=== PATIENT | male | born 1995 | race Two or more races ===

== ENCOUNTER 2020-03-14 13:36 | Emergency (ER) | payer OTHER ==
[2020-03-14 13:50] VITALS: BP 112/76; PULSE 74; TEMP 98.2; BMI 30.8
--- NOTE | 2020-03-14 14:12 | PDOC ---
History of Present Illness - General Chief Complaint: Pain Stated Complaint: RIGHT UPPER CHEST PAIN 3 DAYS Time Seen by Provider: 03/14/20 13:52 - History of Present Illness Initial Comments: 03/14/20 14:03 24M with PMH of GERD presents with acute on chronic right sided chest pain. Patient states he has had this pain for 6 months. Initially it was intermitted, but it has been more severe and constant for the past three days. Describes it as "pressure" in the upper right chest, no radiation, not exertional, not worse with deep breaths, not positional, no SOB, no n/v. States it is worse after he eats. States he has also been having more acid reflux recently. Has seen a GI who prescribed famotidine then omeprazole, most recently took one month ago, but states it did not help. He came to the ER today rather than the GI because he doesn't think they would do anything and he wants more tests. PMH:as above PSH: left ankle surgery Meds: none Allergies: none ROS GENERAL/CONSTITUTIONAL: No fever or chills. No weakness. HEAD, EYES, EARS, NOSE AND THROAT: No change in vision. No ear pain or discharge. No sore throat. CARDIOVASCULAR: chest pain. no shortness of breath RESPIRATORY: No cough, wheezing, or hemoptysis. GASTROINTESTINAL: No nausea, vomiting, diarrhea or constipation. GENITOURINARY: No dysuria, frequency, or change in urination. MUSCULOSKELETAL: No joint or muscle swelling or pain. No neck or back pain. SKIN: No rash NEUROLOGIC: No headache, vertigo, loss of consciousness, or change in strength/sensation. ENDOCRINE: No increased thirst. No abnormal weight change HEMATOLOGIC/LYMPHATIC: No anemia, easy bleeding, or history of blood clots. ALLERGIC/IMMUNOLOGIC: No hives or skin allergy. PE GENERAL: Awake, alert, and fully oriented, in no acute distress HEAD: No signs of trauma, normocephalic, atraumatic EYES: PERRLA, EOMI, sclera anicteric, conjunctiva clear ENT: Auricles normal inspection, hearing grossly normal, nares patent, oropharynx clear without exudates. Moist mucosa NECK: Normal ROM, supple, no lymphadenopathy, JVD, or masses LUNGS: No distress, speaks full sentences, clear to auscultation bilaterally HEART: Regular rate and rhythm, normal S1 and S2, no murmurs, rubs or gallops, peripheral pulses normal and equal bilaterally. Small bulge and tenderness on right costal cartilage ABDOMEN: Soft, nontender, normoactive bowel sounds. No guarding, no rebound. No masses EXTREMITIES : left foot immobilized in boot. Otherwise normal inspection, Normal range of motion, no edema. No clubbing or cyanosis. NEUROLOGICAL: Cranial nerves II through XII grossly intact. Normal speech, normal gait, no focal sensorimotor deficits SKIN: Warm, Dry, normal turgor, no rashes or lesions noted Vital Signs Temp Pulse Resp BP Pulse Ox 98.2 F 74 16 112/76 100 03/14/20 13:39 03/14/20 13:39 03/14/20 13:39 03/14/20 13:39 03/14/20 13:39 MDM: 24M with PMH of GERD presents with acute on chronic right sided chest pain. DDx includes GERD, costochondritis. No typical features, and very low suspicion for cardiac etiology. Given his chest pain and small bulge on his costal cartilage, will get a CXR. -EKG -CXR -ibuprofen 600mg PO 03/14/20 14:17 Sinus bradycardia, rate 59, normal axis and intervals, no ischemic changes CXR: no acute pathology 03/14/20 17:49 DC home with PCP and GI f/u Past History - Medical History Allergies/Adverse Reactions: Allergies Allergy/AdvReac Type Severity Reaction Status Date / Time No Known Allergies Allergy Verified 03/14/20 13:39 Home Medications: Ambulatory Orders NK [No Known Home Medication] 03/14/20 COPD: No GI Disorders: Yes (ACID REFLUX) - Surgical History Orthopedic Surgery: Yes (ORIF L ankle 12/15/19) - Immunization History Immunization Up to Date: Yes - Psycho-Social/Smoking History Smoking History: Former smoker Have you smoked in the past 12 months: No If you are a former smoker, when did you quit?: JULY 2019 Information on smoking cessation initiated: No - Substance Abuse Hx (Audit-C & DAST Scrn) How often the patient has a drink containing alcohol: Never Score: In Men: 4 or > Positive; In Women: 3 or > Positive: 0 Screen Result (Pos requires Nsg. Audit-10AR): Negative In the last yr the pt used illegal drug/Rx for NonMed reason: Yes Score: Yes response is considered Positive: 1 Screen Result (Positive result requires Nsg. DAST-10): Positive *Physical Exam - Vital Signs Last Vital Signs Temp Pulse Resp BP Pulse Ox 98.2 F 74 16 112/76 100 03/14/20 13:39 03/14/20 13:39 03/14/20 13:39 03/14/20 13:39 03/14/20 13:39 Discharge - Discharge Information Problems reviewed: Yes Clinical Impression/Diagnosis: Right-sided chest pain, Globus sensation Condition: Stable Disposition: HOME - Admission No - Follow up/Referral - Patient Discharge Instructions Patient Printed Discharge Instructions: DI for Atypical Chest Pain Additional Instructions: You were seen in the ER for chest pain. We did a physical exam, EKG, and chest x-ray, which did not show any emergent problems. 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 PLease return to the ER for continued or worsening symptoms, difficulty swallowing, vomiting, fever, difficulty breathing, or any other reason. - Post Discharge Activity
--- NOTE | 2020-03-14 14:16 | PDOC ---
Attending Attestation - Resident Resident Name: Jd England - ED Attending Attestation I have performed the following: I have examined & evaluated the patient, The case was reviewed & discussed with the resident, I agree w/resident's findings & plan - HPI HPI: 03/14/20 14:14 24M with PMH of GERD presents with acute on chronic right sided chest pain. Patient states he has had this pain for 6 months. Initially it was intermitted, but it has been more severe and constant for the past three days. Describes it as "pressure" in the upper right chest, no radiation, not exertional, not worse with deep breaths, not positional, no SOB, no n/v. States it is worse after he eats. Describes a globus sensation where he feels there's something in his throat. States he has also been having more acid reflux recently. Has seen a GI who prescribed famotidine then omeprazole, most recently took one month ago, but states it did not help. He came to the ER today rather than the GI because he doesn't think they would do anything and he wants more tests. 03/14/20 15:53 - Physicial Exam PE: 03/14/20 14:14 Agree with the resident's HPI and PE as documented in the electronic medical record. NAD, well appearing, EOMI, PERRL, nl conjunctiva, anicteric; neck supple. lungs clear, RRR, +reproducible chest wall pain on the right. abdomen soft nontender. no rebound, guarding. Back nontender. CAMPA x4, no focal neuro deficits. No peripheral edema. normal color for ethnicity, WWP. 03/14/20 14:15 - Medical Decision Making 03/14/20 14:14 Vital Signs Temp Pulse Resp BP Pulse Ox 98.2 F 74 16 112/76 100 03/14/20 13:39 03/14/20 13:39 03/14/20 13:39 03/14/20 13:39 03/14/20 13:39 vitals reviewed wnl EKG normal sinus rhythm 59 bpm, no interval abnormalities, narrow QRS, ST and T wave segments and morphology normal. CXR no acute chest pathology atypical sx. clinically doubt cardiac etiology reproducible pain, will give analgesia his airway is patent, tolerating PO intake. doubt obstruction he has a globus sensation in his throat, maintaining his secretions. abdomen is soft and nontender will refer GI for EGD and outpatient evaluation DC stable condition, f/u PCP Pt to be discharged in stable condition. Patient made aware of clinical impression, treatment recommendations and disposition plan, return precautions discussed (including but not limited to new or persistent/worsening symptoms, pain, fevers, or signs of infection, chest pain, respiratory distress, inability to tolerate oral intake, dehydration, syncope, or neurologic changes). Follow up with PMD and/or specialist as recommended, follow up information provided, take medications as instructed for duration of time. continue with supportive care, avoid triggers and precipitants. All questions answered to patient's satisfaction and expressed understanding and comfort with this. At the time of discharge, the patient is alert, clinically improved, tolerating po and verbalizes understanding of instructions, satisfied with the care received and felt comfortable with the plan. Patient does not suffer from an acute life- threatening medical condition at this time and is safe for outpatient follow- up. 03/14/20 14:14 03/14/20 14:15 03/14/20 15:48 03/14/20 15:49 03/14/20 15:54 Heart Score/ECG Review #1 ECG reviewed & interpreted by me at: 14:15 General ECG Interpretation: Sinus Rhythm, Normal Rate, Normal Intervals 03/14/20 14:14 EKG normal sinus rhythm 59 bpm, no interval abnormalities, narrow QRS, ST and T wave segments and morphology normal. Discharge - Discharge Information Problems reviewed: Yes Clinical Impression/Diagnosis: Right-sided chest pain, Globus sensation Condition: Stable Disposition: HOME - Admission No - Follow up/Referral - Patient Discharge Instructions Patient Printed Discharge Instructions: DI for Atypical Chest Pain Additional Instructions: You were seen in the ER for chest pain. We did a physical exam, EKG, and chest x-ray, which did not show any emergent problems. 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 PLease return to the ER for continued or worsening symptoms, difficulty swallowing, vomiting, fever, difficulty breathing, or any other reason. - Post Discharge Activity
[2020-03-14] MEDS ORDERED: IBUPROFEN 600 MG TABLET (FP) PO ONE ×2 (14:17→14:20)
--- NOTE | 2020-03-15 15:29 | EKG ---
Test Reason : Blood Pressure : / mmHG Vent. Rate : 059 BPM Atrial Rate : 059 BPM P-R Int : 176 ms QRS Dur : 094 ms QT Int : 400 ms P-R-T Axes : 040 052 042 degrees QTc Int : 396 ms POOR DATA QUALITY, INTERPRETATION MAY BE ADVERSELY AFFECTED SINUS BRADYCARDIA OTHERWISE NORMAL ECG WHEN COMPARED WITH ECG OF 16-DEC-2019 07:23, NONSPECIFIC T WAVE ABNORMALITY NO LONGER EVIDENT IN ANTERIOR LEADS Confirmed by SRAVANI ESCOBAR, ANGELA ([id number]) on 03/15/2020 3:29:12 PM Referred By: NICANOR WINTERS Confirmed By:ANGELA LASSITER MD
== END 2020-03-14 15:49 | disposition home or self-care (01) ==
LOC: FER 13:36
DX: R07.89 Other chest pain (principal)
CPT/HCPCS: 71046-TC-FY; 93005; 99284-25